=== PATIENT | female | born 1970 | race Caucasian/White ===

== ENCOUNTER 2017-10-07 11:29 | Emergency (ER) | payer OTHER ==
[~2017-10-07] VITALS: Ht 160 cm; Wt 62.1 kg
[2017-10-07 12:30] VITALS: Ht 160 cm; Wt 62.1 kg
[2017-10-07 17:06] VITALS: BP 138/72
== END 2017-10-07 17:06 | disposition home or self-care (01) ==
LOC: ED 11:29
DX: G89.29 Other chronic pain (principal); M54.2 Cervicalgia; Z88.0 Allergy status to penicillin; Z88.2 Allergy status to sulfonamides; Z88.5 Allergy status to narcotic agent
CPT/HCPCS: J1885; J2270